=== PATIENT | female | born 1990 | race Caucasian/White ===

== ENCOUNTER 2018-08-06 13:27 | Emergency (ER) | payer SELFPAY ==
[2018-08-06 13:28] VITALS: BP 163/85; PULSE 118; RESP 20; TEMP 36.6; O2SAT 96; BMI 53.2
[2018-08-06 14:00] VITALS: BP 142/79; PULSE 111; RESP 32; TEMP 36.9; O2SAT 97
--- NOTE | 2018-08-06 14:06 | ED.RN ---
lab called to report strep positive. dr bhagat and primary nurse aware.
[2018-08-06] MEDS: 0.9% Normal Saline 1,000 ML 1000 ML IV (14:12)
[2018-08-06] MEDS: Morphine 4 MG/ML Syringe IV (14:13)
[2018-08-06] MEDS: Ketorolac 30 MG/ML Syringe IV (14:13)
[2018-08-06] MEDS: Ceftriaxone 1 GM/50 ML BAG IV (14:13)
[2018-08-06 14:22] VITALS: BP 142/79; PULSE 103; RESP 27; O2SAT 96
[2018-08-06 14:32] LABS: Pregnancy, Serum, hCG Quali. NEGATIVE Negative (0-9 Nonpreg)
--- NOTE | 2018-08-06 14:42 | ED.VISSUMM ---
- ER Visit Summary Date of Service: 08/06/18 Chief Complaint: Sore throat History of Present Illness: The patient is a 28 F who sees Gricelda Swan. She does not see an ENT. She reports that she has sore throat began 2 days ago. She has a sharp pains 10 out of 10 severity. Is worsened by swallowing. Is mainly relieved with ibuprofen. She reports she had a fever to 102 degrees and chills. She complains of bilateral ear pain. She denies any cough. Physical Examination: Vitals: 97.9, 163/85, 118, 20, 96% room air which is not hypoxic. General: Well-nourished and well-developed. Head: Normocephalic atraumatic. HEENT ENT: Pharyngeal erythema and tonsillar swelling. No exudate present. There is no uvular shift or evidence of peritonsillar abscess. No fullness of the soft palate. She does have anterior cervical lymphadenopathy that is tender. Neck: Supple, no lymphadenopathy. No JVD. Cardiovascular: Regular rate and rhythm. No murmurs. Respiratory: No respiratory distress. Clear to auscultation bilaterally. Abdominal: Soft, nontender, nondistended, normal bowel sounds. No guarding, rebound, or peritoneal signs. Back: Nontender. Extremities: Nontender, no edema. Skin: Normal color, no rash. Neurologic: Alert and oriented ?3. Cranial nerves II through XII are intact. Normal strength and sensation. Psych: Normal affect. Test Results: test is negative. Rapid strep is positive. Emergency Department Course and Treatment: Patient had an IV placed. She was given a liter normal saline. She was given Toradol, morphine, Rocephin, and dexamethasone IV. She is resting comfortably. Treatment Plan: Patient will be discharged with amoxicillin and [place]. Instructed to follow-up with Dr. Blank in 1 week if not improving. I did discuss with her the risk of a peritonsillar abscess. Return to the emergency department for any worsening symptoms. Disposition: To home in improved and stable condition. Impression: 1. Strep pharyngitis. This note was generated with TextPoweration software. It may contain incorrect words, spelling, and punctuation that were not noted in review of the chart prior to signing ED Disposition - Plan for ED Patient: Chief Complaint: Sore Throat Instructions: ED Strep Pharyngitis Conf Prescriptions: Oxycodone HCl/Acetaminophen [Percocet 5/325] 1 tablet PO Q6H PRN PRN 3 Days #12 tablet PRN Reason: Pain Amoxicillin 500 mg PO TID #30 tablet Referrals: Junior Blank MD [STAFF PHYSICIAN] - 1 Week if not improving
[2018-08-06 15:00] VITALS: BP 144/81; PULSE 99; RESP 30; TEMP 36.9; O2SAT 94
[2018-08-06 16:01] VITALS: BP 142/82; PULSE 97; RESP 23; TEMP 37.2; O2SAT 94
== END 2018-08-06 16:04 | disposition home or self-care (01) ==
PROVIDERS: Emergency Provider Emergency Medicine; Family Provider Nurse Practitioner; PCP Nurse Practitioner
DX: J02.0 Streptococcal pharyngitis (principal)
CPT/HCPCS: 84703; 87077; 87880; 96361; 96365; 96375; 99284; J7030; A4216

== ENCOUNTER → 2019-01-03 | Outpatient (CLI) | payer MEDICAID, SELFPAY ==
[2019-01-03 21:59] LABS: Absolute Lymphocyte Count 1.92 X10^3/ul (0.83-4.51); Absolute Neutrophil Count 7.5 X10^3/uL (2.0-7.7); Basophil# 0.01 X10^3/uL; Basophil% 0.1 % (0-1); Eosinophil# 0.15 X10^3/uL; Eosinophils% 1.4 % (0-5); Hematocrit 41.1 % (37-47); Hemoglobin 13.8 g/dl (12.0-15.0); Lymphocyte # 1.92 X10^3/ul (4.0); Lymphocyte % 18.3 % (19-41); Mean Corp Hgb Conc 33.6 g/gl (32-36); Mean Corpuscular Hgb 28.9 pg (27.0-32.0); Mean Corpuscular Volume 86.2 fL (81-99); Mean Platelet Vol. 11.6 fl (6.2-12.0); Monocyte# 0.93 X10^3/uL; Monocyte% 8.8 % (0-10); Neutrophil # 7.47 X10^3/uL (2.7-7.7); Neutrophil % 71.1 % (47-70); POSITIVE COUNT NO; POSITIVE DIFFERENTIAL NO; POSITIVE MORPHOLOGY NO; Platelet Count 253 K/mm3 (150-450); RBC Distribution Width CV 13.7 % (11.6-14.6); RBC Distribution Width SD 41.7 fl (35.1-43.9); Red Blood Count 4.77 M/mm3 (4.2-5.4); White Blood Count 10.5 K/mm3 (4.4-11.0)
[2019-01-03 22:12] LABS: ALB/GLOB Ratio 0.5 RATIO (0.9-2.4); AST(SGOT) 30 U/L (15-37); Alanine Aminotransfer ALT/SGPT 33 U/L (13-56); Albumin, Serum 2.8 g/dL (3.2-5.0); Alkaline Phosphatase 130 U/L (45-117); Anion Gap 8 (5-15); BUN 10 mg/dL (7-18); Calcium,Total 8.7 mg/dL (8.5-10.1); Chloride 99 mmol/L (98-107); Cholesterol 232 mg/dL (200); Creatinine, Serum 0.83 mg/dL (0.55-1.02); EST Glomerular Filtration Rate 86 mL/min (>60); Est Glom Filt Rate - Afr Amer 104 mL/min (>60); Globulin 5.5 g/dL (2.2-4.2); Glucose 92 mg/dL (74-106); High Density Lipoprotein 50 mg/dL; Potassium 3.8 mmol/L (3.5-5.1); Protein, Total 8.3 g/dL (6.4-8.2); Sodium Level 139 mmol/L (136-145); Triglycerides 150 mg/dL; Very Low Density Lipoprotein 30 mg/dL (5-40)
[2019-01-12 16:39] LABS: HPV APTIMA, High Risk Negative (Negative)
== END | disposition home or self-care (01) ==
LOC: LABSPEC 16:14
PROVIDERS: Nurse Practitioner; Visit Provider Obstetrics & Gynecology
DX: I10 Essential (primary) hypertension (principal); Z12.4 Encounter for screening for malignant neoplasm of cervix
CPT/HCPCS: 80053; 80061; 85025; 88175; G0145

== ENCOUNTER 2020-06-25 09:49 | Emergency (ER) | payer MEDICAID, SELFPAY ==
[2019-01-03 16:37] VITALS: BMI 58.7
[2020-06-25 09:50] VITALS: BP 132/85; PULSE 103; RESP 24; TEMP 36.6; O2SAT 95; BMI 63.9
--- NOTE | 2020-06-25 10:19 | ED.VIS.GEN ---
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 Her respiratory symptoms started June 16. She had a negative test on Tuesday. She had a repeat test on June 18. The test was positive for Covid. She presently reports nasal symptoms, loss of taste and smell, cough, dyspnea and dyspnea on exertion. Pulse ox was 82% at home. She states she was walking in her house. She denies history of PE or DVT. She denies leg pain, swelling discoloration. She has history of hypertension, depression and is on control pills. She denies vomiting or diarrhea. She denies dysuria, frequency, urgency or hematuria. She denies headache, photophobia, neck pain or neck stiffness. She denies ocular, auditory or visual symptoms. She denies discoloration of her digits. She denies rash. Prior similar symptoms: No Recent Illness/Hospitalization: Yes - COVID-19 - Past Medical History (1) Depression Status: Acute (2) History of appendectomy Status: Acute (3) Hypertension Status: Acute (4) Lower leg edema Status: Acute Past Medical History - Allergies and Home Meds Allergies/Adverse Reactions: Allergies acetaminophen [From Vicodin] Adverse Reaction (Verified 06/25/20 09:51) motion sickness feeling 2010 hydrocodone [From Vicodin] Adverse Reaction (Verified 06/25/20 09:51) motion sickness feeling 2010 Primary Care Physician: Finesse Ibanez MD [Primary Care Provider] - Prior records reviewed: Yes Surgical History: - - LEEP procedure Lives: With Family Smoking Status: Never smoker Alcohol: None Drugs: None Review of Systems General: Reports: Malaise, Sweats. Denies: Chills, Fever, Weight loss Eyes: Denies: Visual changes - bilaterally, Blurred Vision - bilaterally, Diplopia ENT: Denies: Bilateral ear pain, Sore throat Cardiovascular: Denies: Chest pain, Palpitations, Heart racing Respiratory: Reports: Dyspnea, Cough, Dyspnea on exertion. Denies: Sputum, Orthopnea, Paroxysmal nocturnal dyspnea Gastrointestinal: Denies: Abdominal pain, Nausea, Vomiting, Diarrhea, Melena, Hematochezia Genitourinary: Denies: Dysuria, Hematuria, Frequency Musculoskeletal: Reports: Swelling - Lymphedema of lower extremities, chronic. Denies: Myalgias, Arthralgias, Neck pain, Back pain, Extremity Pain, -, - Skin: Denies: Rash, Wounds Neurological: Reports: Headache, Weakness. Denies: Parasthesia Psych: Reports: Depression. Denies: Anxiety, Suicidal thoughts Hematologic: Denies: Easy bruising, Easy bleeding Physical Exam Vital Signs/Narrative: Vital Signs Temp Pulse Resp BP Pulse Ox 06/25/20 09:50 97.8 F 103 H 24 H 132/85 H 95 Inital Vital Signs reviewed: Yes General: Well nourished, Well developed, Obese, No Acute Distress - Patient is tachypneic. She does not appear in distress, however. Head: Normocephalic, Atraumatic Eyes: Perrl, EOMI ENT: Moist mucous membranes, No rhinorrhea Neck: Supple, Nontender Cardiovascular: Regular rhythm, No murmurs, Normal S1, Normal S2, Tachycardia Respiratory: Chest nontender, Rales - Rales are noted bilaterally greater right than left.. Negative for: No distress, CTA bilaterally Abdomen: Soft, Nontender, Nondistended, Normal bowel sounds Back: Nontender, Normal Inspection Extremities: Nontender, No edema, - - There is no asymmetry, swelling, discoloration, leg vein distention, palpable cords or tenderness along the distribution of the deep venous system.. Negative for: Calf Tenderness Skin: Normal color, No rash, No Trauma. Negative for: Cyanosis, Diaphoresis, Jaundice Neurological: Alert, Oriented x3, Cranial nerves II-XII grossly intact, Normal Strength, Normal Sensation Psychological: Normal affect, Normal Mood Diagnostic/Tx/Re-eval Chest X-Ray - ED: 1 View, Read by ED Physician, Right Infiltrate, Left Infiltrate, - - Patient's chest x-ray is consistent with Covid pneumonia. Obtain paperwork from a [facility] that verifies patient's positive test. 06/25/20 10:05 Chest 1 View (Portable) [RAD] Stat Laboratory Results 06/25/20 06/25/20 10:15 10:15 WBC 3.8 L RBC 5.08 Hgb 14.2 Hct 44.5 MCV 87.6 MCH 28.0 MCHC 31.9 L RDW Std Deviation 46.8 H RDW Coeff of Ej 14.5 Plt Count 209 MPV 11.1 Immature Gran % (Auto) 0.500 Neut % (Auto) 54.9 Lymph % (Auto) 31.3 [place] % (Auto) 12.5 H Eos % (Auto) 0.5 Baso % (Auto) 0.3 Absolute Neuts (auto) 2.1 Absolute Lymphs (auto) 1.20 Nucleated RBC % 0 Sodium 136 Potassium 3.5 Chloride 98 Carbon Dioxide 33.0 H Anion Gap 5 BUN 7 Creatinine 0.80 Estim Creat Clear Calc 92.53 Est GFR (MDRD) Af Amer 108 Est GFR (MDRD) Non-Af 89 BUN/Creatinine Ratio 8.8 L Glucose 125 H Calcium 8.7 - Medical Decision Making Brandt patient has bilateral pneumonia most likely due to Covid. Will obtain documentation to verify that she had a positive Covid test. Blood work was obtained to assess if patient is a candidate for discharge to home with oxygen versus admission. Also will discuss case with the pulmonary regarding outpatient treatment for Covid. Spoke with Muriel the pulmonary nurse overseeing the outpatient treatment of Covid patients. Since patient is requiring oxygen and it is related to Covid she does not qualify based on the EUA. Spoke with Marjorie who facilitate home oxygen therapy. Patient is made aware of this. ED Disposition - Plan for ED Patient: Disposition: Home or Assisted Living Diagnosis: Pneumonia due to COVID-19 virus, Hypoxia with exertion Instructions: Coronavirus Disease 2019 (COVID-19): Caring for Yourself or Others, ED Pneumonia (Adult) Prescriptions: Dexamethasone [Decadron] 6 mg PO DAILY 5 Days #5 tab Transmission Status: Pending to [id number] Referrals: Finesse Ibanez MD [Primary Care Provider] -
[2020-06-25 10:25] VITALS: BP 132/85; PULSE 103; RESP 24; TEMP 36.6; O2SAT 95
--- NOTE | 2020-06-25 10:27 | RAD_ITS ---
STUDY: X-RAY CHEST REASON FOR EXAM: Female, 30 years old. HYPOXIA, BILATERAL RALES, LAST WEEK, TUESDAY TOLD COVID POSITIVE TECHNIQUE: Single AP portable view of the chest. COMPARISON: Comparison is made with prior study dated 07/19/2013. FINDINGS: EKG electrodes are seen. Focal infiltrate is seen in the right upper lobe. Mild increased left perihilar markings. Follow-up is recommended. There is no demonstrated pleural abnormality. Normal size heart. Normal mediastinum and art. Normal visualized pulmonary arteries. Normal visualized aortic arch and descending thoracic aorta. Normal visualized thoracic spine. Normal visualized ribs, clavicles, and shoulders. There is no demonstrated abnormality of the visualized soft tissue structures of the upper abdomen. RAD/Chest 1 View (Portable) IMPRESSION: Focal right upper lobe infiltrate and left perihilar increased markings. Follow-up is recommended. Electronically Signed: Christopher Boudreaux, at 10:49 EST , Service support ,
--- NOTE | 2020-06-25 10:28 | NURSING ---
TALKED TO JONN AT [facility] TO GET RESULTS OF COVID FAXED TO US.
[2020-06-25 10:29] LABS: Absolute Neutrophil Count 2.1 X10^3/uL (2.0-7.7); Basophil# 0.01 X10^3/uL; Basophil% 0.3 % (0-1); Eosinophil# 0.02 X10^3/uL; Eosinophils% 0.5 % (0-5); Hematocrit 44.5 % (37-47); Hemoglobin 14.2 g/dL (12.0-15.0); Lymphocyte % 31.3 % (19-41); Mean Corp Hgb Conc 31.9 g/dL (32-36); Mean Corpuscular Volume 87.6 fL (81-99); Mean Platelet Vol. 11.1 fl (6.2-12.0); Monocyte# 0.48 X10^3/uL; Monocyte% 12.5 % (0-10); NRBC Flagged by Analyzer 0 % (0-5); Neutrophil % 54.9 % (47-70); Platelet Count 209 K/mm3 (150-450); RBC Distribution Width CV 14.5 % (11.6-14.6); RBC Distribution Width SD 46.8 fl (35.1-43.9); Red Blood Count 5.08 M/mm3 (4.2-5.4); White Blood Count 3.8 K/mm3 (4.4-11.0)
[2020-06-25 10:33] VITALS: O2SAT 100
[2020-06-25 10:37] LABS: Anion Gap 5 (5-15); BUN 7 mg/dL (7-18); BUN/Creat Ratio 8.8 RATIO (10-20); Calcium,Total 8.7 mg/dL (8.5-10.1); Chloride 98 mmol/L (98-107); EST Glomerular Filtration Rate 89 mL/min (>60); Est Glom Filt Rate - Afr Amer 108 mL/min (>60); Estimated Creatinine Clearance 92.53 ml/min; Glucose 125 mg/dL (74-106); Potassium 3.5 mmol/L (3.5-5.1); Sodium Level 136 mmol/L (136-145)
[2020-06-25 11:00] LABS: Blood Gas Specimen Type VEN; VBG BASE EXCESS 7 mmol/L (-1.0-3.5); VBG Bicarbonate 33 mmol/L (22-26); VBG PO2 39 mmHg (25-40); VBG SO2 69 % (50-70); VBG TCO2 35 mmol/L (23-33); VBG pCO2 59.7 mmHg (41-51); VBG pH 7.35 (7.32-7.42)
[2020-06-25 11:14] VITALS: BP 129/92; PULSE 81; RESP 16; TEMP 36.1; O2SAT 99
[2020-06-25] MEDS: dexAMETHasone 10 MG/ML Vial IV (11:14)
--- NOTE | 2020-06-25 11:20 | CM.ED ---
SOCIAL WORK Informant: Dr. Duncan Reason for Consult: Discharge Planning- Home O2 Updated by Dr. Duncan, patient requires home O2. Patient positive for COVID-19 and received positive test from patient's employer. Call to patient to discuss home O2 needs. Patient alert and oriented x4. Patient reports already has pulse ox at home, does not smoke and lives with significant other and her children. Discussed providers. Patient in agreement to have O2 needs set up with [employer]. Dr. Duncan completed [employer] quickscript. Facesheet, quickscript, and COVID-19 test results faxed and called to [employer]. Nursing updated. Portable O2 tank and instruction sheet given to nurse. RT to be notified. Plan: Home with Home O2 through [employer] [facility] MSW, HOME CARE MANAGER RN
--- NOTE | 2020-06-25 12:31 | CPS ---
Teaching done on home O2 usage. Gave patient COVID stoplight sheet on O2 instructions and symptom monitoring. Patient verbalizes understanding on operation of O2 tank and usage instructions.
--- NOTE | 2020-07-01 13:59 | CASEMGMT ---
RN CM ED DC PHONE CALL DC DATE: 06/25/2020 DC Disposition: Home with oxygen Diagnosis: COVID 19 Intro role of CM to patient via phone. Pt is still on oxygen and no questions or difficulties. She states she has followed up with her PCP virtually twice since her visit to ED. No concerns and she is aware to call PCP with any worsening symptoms. Key BAUMANN RN ACM
== END 2020-06-25 11:15 | disposition home or self-care (01) ==
PROVIDERS: Emergency Provider Emergency Medicine; PCP Family Medicine
DX: U07.1 COVID-19 (principal); J12.89 Other viral pneumonia; R09.02 Hypoxemia; E66.9 Obesity, unspecified; I10 Essential (primary) hypertension; F32.9 Major depressive disorder, single episode, unspecified; Z79.3 Long term (current) use of hormonal contraceptives; Z79.899 Other long term (current) drug therapy
CPT/HCPCS: 71045; 80048; 82803; 85025; 96374; 99284; A4216

== ENCOUNTER → 2021-04-23 12:31 | Outpatient (CLI) | payer MEDICAID, SELFPAY ==
[2021-04-28 16:56] LABS: HPV Reflexed? NOT INDICATED
== END ==
PROVIDERS: PCP Family Medicine; Visit Provider Obstetrics & Gynecology
DX: Z12.4 Encounter for screening for malignant neoplasm of cervix (principal)
CPT/HCPCS: 88175; G0145

== ENCOUNTER → 2022-10-25 | Outpatient (CLI) | payer MEDICAID, SELFPAY ==
--- NOTE | 2022-10-25 15:25 | MRI_ITS ---
STUDY: MR PELVIS WITH T WITHOUT CONTRAST REASON FOR EXAM: Female, 32 years old. Surgical consult for hysterectomy. Patient has 2 uteri and 2 cervix checking to see location and number of ovaries prior to hysterectomy. TECHNIQUE: Standardized fat and water weighted pulse sequences were obtained in all 3 orthogonal planes, pre-and post contrast administration. IV 30mL CLARISCAN was administered for the contrast portion of the examination. COMPARISON: None. 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 The right uterus measures 7 x 3.2 x 3.4 cm. The endometrium measures 4 mm. There is normal myometrium. A single associated ovary which appears to lie at the uterine fundus and measures 4.1 x 2.3 x 2.6 cm in size there are multiple follicles. The largest measures 1.7 x 1.7 x 1.6 cm. The left uterus measures 7.1 x 3.4 x 3.5 cm the endometrium measures 7 mm in thickness. There is no myometrial mass. There is a single ovary which lies posterior to the uterine fundus and measures 2.4 x 1.6 x 2.4 cm. There are multiple follicles. Normal urinary bladder. Normal visualized small intestine. Normal visualized colon. There is no pelvic fluid. There is no pelvic mass lesion or lymphadenopathy. Normal visualized pelvic arteries. Normal osseous structures. Normal abdominal wall. There is no evidence of abnormal contrast enhancement. MRI/Pelvis W/WO Contrast IMPRESSION: 1. Uterine didelphys as above. There is a single ovary per each side located as described in the text. Electronically Signed: Jose Juan Messer DO at 23:18 EDT ,
[2022-10-25 17:36] LABS: CREATININE FINGERSTICK < 0.9 mg/dL (0.55-1.02); EGFR FINGERSTICK > 60.0000 mL/min (>60)
== END | disposition home or self-care (01) ==
LOC: MRI 15:25
PROVIDERS: PCP Family Medicine; Referring Provider Registered Nurse; Visit Provider Registered Nurse
DX: Q51.28 Other and unspecified doubling of uterus (principal)
CPT/HCPCS: 72197; A9575

== ENCOUNTER 2022-11-14 23:08 | Emergency (ER) | payer MEDICAID, SELFPAY ==
[2022-11-14 23:08] VITALS: BP 157/83; PULSE 119; RESP 16; TEMP 36.6; O2SAT 97; BMI 62.9
--- NOTE | 2022-11-14 23:48 | EDS_ITS ---
HPI History of Present Illness Chief Complaint: Sore Throat Informant: patient Narrative Narrative: Sore throat since yesterday increasing fever this evening pain with swallowing. History of strep years ago. History of hypertension diabetes states diabetes well controlled with metformin. No cough. No vomiting. Prior similar symptoms: Yes PFSH PFSH Medical History Chronic ear infection Depression Hypertension Hypothyroid Home Medications hydrochlorothiazide 25 mg tablet 25 mg PO QAM #30 tabs 01/03/19 [Rx Last Taken Unknown] levothyroxine 75 mcg tablet 75 mcg PO QDAY #30 tabs 01/03/19 [Rx Last Taken Unknown] clonidine HCl 0.1 mg tablet 0.1 mg PO QHS htn and bloody noses #30 tabs 02/05/19 [Rx Last Taken Unknown] losartan 100 mg tablet 100 mg PO QDAY hypertension #30 tabs 02/05/19 [Rx Last Taken Unknown] escitalopram oxalate 10 mg tablet (Lexapro) 10 mg PO DAILY 10/07/22 [History Last Taken Unknown] norgestimate 0.25 mg-ethinyl estradiol 35 mcg tablet (Sprintec (28)) 1 tab PO QDAY #28 tabs 11/12/22 [Rx Last Taken Unknown] metformin 1,000 mg tablet 1,000 mg PO BID 11/14/22 [History Last Taken Unknown] Allergy/AdvReac Type Severity Reaction Status Date / Time hydrocodone [From Vicodin] AdvReac motion Verified 11/14/22 23:10 sickness feeling 2010 Family History Other FH: kidney cancer Hyperlipidemia Lung cancer Respiration disorder Surgical History H/O LEEP History of appendectomy Myringotomy tube status S/P cholecystectomy Social History household members: children housing: apartment number of children: 2 current occupational status: employed current occupation: nurses aid at [employer] history of recent travel: No Smoking Status: Never smoker alcohol intake: never substance use type: does not use seatbelt use: sometimes do you feel safe at home: Yes additional social history: ROS ROS ED Constitutional Constitutional ED: Reports fever(s); Denies chills or sweats Eyes Eyes: Denies change in vision ENT ENT ED: Reports sore throat; Denies dysphagia Cardiovascular Cardiovascular: Denies chest pain, leg edema, palpitations or racing heartbeat Respiratory/Chest Respiratory/Chest: Denies cough, dyspnea or dyspnea on exertion Gastrointestinal Gastrointestinal: Denies abdominal pain, diarrhea, nausea or vomiting Genitourinary Genitourinary ED: Denies dysuria, hematuria or urinary frequency Musculoskeletal Musculoskeletal: Denies back pain, extremity pain or neck pain Integumentary Denies rash or wounds Neurologic Neurologic: Denies headache(s), paresthesias or weakness EXAM Physical Exam Const Vital Signs: 11/14/22 23:08 Temperature 98 F Temperature Source Temporal Pulse Rate 119 H Respiratory Rate 16 Blood Pressure 157/83 H Blood Pressure Mean 107 Pulse Ox 97 Oxygen Delivery Method Room Air Positive well nourished and well developed General Appearance ED: well developed and NAD HEENT Reports TM's clear and moist mucous membranes HEENT Narrative: 2+ symmetric tonsils uvula midline there is mild posterior pharyngeal erythema there is exudates superior aspect bilateral tonsils. No trismus. Airway patent. normocephalic and atraumatic Tympanic Membrane ED: Yes TM's clear Eyes PERRL, EOMs intact bilaterally and conjunctivae normal General Eye ED: Yes normal appearance of both eyes Neck no lymphadenopathy and supple General: Negative for tenderness Chest Wall Chest: Negative for tenderness Resp normal respiratory effort and normal air movement Effort and Inspection: symmetric chest movement; Negative for respiratory d istress Cardio regular rate, regular rhythm and no murmurs Peripheral Pulses: pulses 2+ throughout GI normal to inspection, nondistended, normoactive bowel sounds and non-tender Palpation: Negative for guarding or rebound tenderness present Back/Spine no CVA tenderness and no thoracic nor lumbar tenderness Extremity normal to inspection General Extremety ED: Negative for edema or tenderness General Extremity: Negative for edema Neuro oriented x3 and no sensory deficits noted Sensorium / Orientation: awake and alert Skin no rashes or lesions noted and no wounds MDM MDM MDM Narrative Medical decision making narrative: Interventions / MDM: Differential diagnosis: Strep pharyngitis, viral pharyngitis Diagnosis considered but do not suspect: No clinical peritonsillar abscess findings My EKG interpretation: N/A Imaging independently reviewed and interpreted by myself: N/A External documents reviewed: N/A Test considered but not ordered:N/A ED course: Patient reports diabetes well controlled. For symptoms dexamethasone was started she will monitor her sugars. Rapid strep returned positive. Discussed options for treatment, IM Bicillin was ordered. Return precautions. All questions were answered. Re-evaluation: stable Disposition discussed with patient/family/significant other: Patient Case discussed with consulting clinician: N/A Discharge Plan Triage Chief Complaint: Sore Throat ED Provider: Rickie Morton Dx/Rx/DC Orders Clinical Impression: Acute streptococcal pharyngitis, History of diabetes mellitus Instructions: ED Pharyngitis, Strep (Confirmed) Prescriptions: No Action escitalopram oxalate [Lexapro] 10 mg tablet 10 mg PO DAILY hydrochlorothiazide 25 mg tablet 25 mg PO QAM Qty: 30 12RF levothyroxine 75 mcg tablet 75 mcg PO QDAY Qty: 30 12RF metformin 1,000 mg tablet 1,000 mg PO BID losartan 100 mg tablet 100 mg PO QDAY Qty: 30 11RF Rx Instructions: stop the lisinopril clonidine HCl 0.1 mg tablet 0.1 mg PO QHS Qty: 30 11RF norgestimate-ethinyl estradiol [Sprintec (28)] 0.25-35 mg-mcg tablet 1 tab PO QDAY Qty: 28 12RF Primary Care Provider: Finesse Ibanez Referrals: Finesse Ibanez MD [Primary Care Provider] - 3-5 Days if not improving Activity Restrictions/Additional Instructions: Confirmed strep status post dexamethasone and Bicillin injection. Monitor glucose as this will be more elevated with the dexamethasone. Monitor symptoms if worsens return otherwise outpatient follow-up. Disposition Disposition: Home, Self Care Discharge Date/Time: 11/15/22 00:59
[2022-11-14] MEDS: dexAMETHasone 4 MG Tablet 8 MG PO (23:57)
[2022-11-15] MEDS: Penicillin G Benzathine 1.2 MU/2 ML Syringe IM (00:47)
== END 2022-11-15 00:59 | disposition home or self-care (01) ==
PROVIDERS: Emergency Provider Emergency Medicine; PCP Family Medicine; Visit Provider Emergency Medicine
DX: J02.0 Streptococcal pharyngitis (principal); E11.9 Type 2 diabetes mellitus without complications; I10 Essential (primary) hypertension; Z79.899 Other long term (current) drug therapy; Z79.84 Long term (current) use of oral hypoglycemic drugs; E03.9 Hypothyroidism, unspecified; F32.A Depression, unspecified; Z79.3 Long term (current) use of hormonal contraceptives
CPT/HCPCS: 87880; 96372; 99282

== ENCOUNTER → 2024-04-18 | Outpatient (CLI) | payer MEDICAID, SELFPAY ==
[2024-04-20 04:08] LABS: Chlamydia By Nucleic Acid AMP Negative (Negative); Gonococcus By Nucleic Acid AMP Negative (Negative)
[2024-04-24 10:09] LABS: HPV APTIMA, High Risk Negative (Negative)
== END | disposition home or self-care (01) ==
LOC: LABSPEC 10:28
PROVIDERS: PCP Family Medicine; Referring Provider Nurse Practitioner Women's Health; Visit Provider Nurse Practitioner Women's Health
DX: Z11.3 Encounter for screening for infections with a predominantly sexual mode of transmission (principal); Z12.4 Encounter for screening for malignant neoplasm of cervix
CPT/HCPCS: 87491; 87591; 87624; 88175; G0145